=== PATIENT | female | born 1995 | race Caucasian/White ===

== ENCOUNTER 2017-04-04 11:22 | Emergency (ER) | payer OTHER ==
[2017-04-04 11:33] VITALS: BP 104/56
--- NOTE | 2017-04-04 11:54 | UC ---
Ear Complaint HPI - HPI Summary HPI Summary: 21 y/o female with no PMH, meds- IDU. c/o eey pain, ear pain and sore throat x several days. NO fever, chills, + fatigue, malaise, no neck pain. + drainage from b/l eyes x several days, h/o conjuntivitis several months ago tx with erythromycin ointment well. no cough, SOB, + pain with swallowing, no difficulty swallowing. no abdominal pains. - History of Current Complaint Chief Complaint: UCRespiratory Stated Complaint: EAR PAIN,SORE THROAT Time Seen by Provider: 04/04/17 11:42 Hx Obtained From: Patient Hx Last Menstrual Period: 1 yr ?: No Onset/Duration: Gradual Onset, Lasting Days Severity Initially: Mild Severity Currently: Moderate Associated Signs/Symptoms: Positive: Discharge, URI Symptoms - Allergies/Home Medications Allergies/Adverse Reactions: Allergies Allergy/AdvReac Type Severity Reaction Status Date / Time Clavulanic Acid Allergy Difficulty Verified 04/04/17 11:33 Breathing Home Medications: Home Medications Levonorgestrel (Iud) [Liletta IUD] 18.6 mcg IU DAILY 04/04/17 [History Confirmed 04/04/17] PMH/Surg Hx/FS Hx/Imm Hx Previously Healthy: Yes - Surgical History Surgical History: Yes Surgery Procedure, Year, and Place: , 03/21/14, [facility]. T&A, ~2002, [facility]. Multiple Sets of Ear Tubes - Social History Alcohol Use: Occasionally Substance Use Type: None Smoking Status (MU): Light Every Day Tobacco Smoker Type: Cigarettes Amount Used/How Often: 1/4-1/2 PPD Length of Time of Smoking/Using Tobacco: 3 Years Have You Smoked in the Last Year: Yes Household Exposure Type: Cigarettes Review of Systems Constitutional: Fatigue Eyes: Blurred Vision, Drainage, Eye Redness ENT: Sore Throat, Ear Ache, Sinus Congestion Respiratory: Negative Cardiovascular: Negative Gastrointestinal: Negative Genitourinary: Negative Motor: Negative Neurovascular: Negative Musculoskeletal: Negative Neurological: Negative Psychological: Negative All Other Systems Reviewed And Are Negative: Yes Physical Exam Triage Information Reviewed: Yes Appearance: No Pain Distress, Well-Nourished, Ill-Appearing - Mild Vital Signs: Initial Vital Signs Temp 98.2 F 04/04/17 11:27 Pulse 61 04/04/17 11:27 Resp 18 04/04/17 11:27 BP 104/56 04/04/17 11:27 Vital Signs Reviewed: Yes Eyes: Positive: Conjunctiva Inflamed, Discharge - moderate amount of purulent discharge from eye b/l, caking on lower and upper lids, no stye/ hordeolum noted , + injected conjunctiva b/l, EMOI. ENT: Positive: Hearing grossly normal, Pharyngeal erythema - mild no exudates noted, TM bulging, TM red - + fluid b/l TMs. Neck: Positive: Supple, Nontender, Enlarged Nodes @ - subman, no posterior cervical LNs Respiratory: Positive: Chest non-tender, Lungs clear, Normal breath sounds, No respiratory distress, No accessory muscle use Abdomen Description: Positive: Nontender, No Organomegaly, Other: - no slenomegaly Neurological Exam: Normal Psychological Exam: Normal Skin Exam: Normal Ear Complaint Course/Dx - Course Course Of Treatment: AOM, URI. zpac given, allergy to augmentin/ ? amox. Erythromycin for eye infection. F/U with PCP within 1 week. Return with new symptoms/ if symptoms worsen. - Differential Dx/Diagnosis Differential Diagnosis/HQI/PQRI: Bronchitis, Cerumen Impaction, Otitis Externa, Otitis Media, Trauma, URI Provider Diagnoses: AOM, URI Discharge - Discharge Plan Condition: Stable Disposition: HOME Prescriptions: Azithromyxin KIERRA (NF) [Z-Kierra (Zithromax) 250 mg tabs #6] 2 tab PO .TODAY, THEN 1 DAILY #6 tab Erythromycin OPTH OINT* [Erythromycin 0.5% OPTH OINT*] 1 applic BOTH EYES QID # 1 tube Patient Education Materials: Conjunctivitis (ED), Otitis Media (ED) Referrals: Libby Cline MD [Primary Care Provider] - Additional Instructions: - Z-pac for inner ear infection as directed. - Erythromycin ointment to lower eye lid at least 4 times a day until symptoms improve, may decreased to 3 times a day afterwards for 7 days total - Motrin/ tylenol for fever/ chills - Increased rest, increase fluid intake. - REutrn to ER/ UC with fevers. chills, worsening symptoms.
== END 2017-04-04 12:00 | disposition home or self-care (01) ==
LOC: UCCORT 11:22
DX: H66.90 Otitis media, unspecified, unspecified ear (principal); J06.9 Acute upper respiratory infection, unspecified; F17.210 Nicotine dependence, cigarettes, uncomplicated
CPT/HCPCS: 99212; G0463